=== PATIENT | male | born 1970 | race Caucasian/White ===

== ENCOUNTER 2018-04-19 09:45 | Emergency (ER) | payer OTHER ==
[~2018-04-19] VITALS: Wt 77.1 kg
[~2018-04-19 09:45] MED LIST: ACETAMINOHPEN/C1 TAB PO; AMBIEN5 MG PO; AUGMENTIN 875 M1 TAB PO; CELEXA40 MG PO; CLARITIN10 MG PO; FLEXERIL10 MG PO; GLIPIZIDE5 MG PO; LANTUS100 U/ML SC; METFORMIN1000 MG PO; TRAZADONE HYDR100 MG PO; VOLTAREN75 MG PO; ZOFRAN4 MG PO
[2018-09-10] MEDS ORDERED: CEPHALEXIN500 M1 PO (13:44)
== END 2018-04-19 13:09 | disposition home or self-care (01) ==
LOC: ED 09:45
DX: E11.40 Type 2 diabetes mellitus with diabetic neuropathy, unspecified (principal); M79.671 Pain in right foot; M79.672 Pain in left foot; F17.200 Nicotine dependence, unspecified, uncomplicated; Z79.899 Other long term (current) drug therapy; Z88.6 Allergy status to analgesic agent; Z79.4 Long term (current) use of insulin

== ENCOUNTER 2018-09-12 20:29 | Emergency (ER) | payer SELFPAY ==
[~2018-09-12] VITALS: Ht 180.3 cm; Wt 77.1 kg
--- NOTE | ~2018-09-12 | EKG ---
[place], [place] ELECTROCARDIOGRAM REPORT NAME: NICK ROACH UNIT #: [id number] ROOM: DOCTOR: EPIPHANY DRAFT REPORT BIRTHDATE: [birth year] [facility] Test Date: 2018-09-12 Test Time: 20:48:38 Pat Name: NICK ROACH Department: Room: Gender: Sole Stainer: : 1970 Requested By: MITZY LOPEZ Order Number: [id number] Reading MD: Micki Siddiqui MD Measurements Intervals [place] Rate: 75 P: 58 NC: 168 QRS: 20 QRSD: 92 T: 83 QT: 395 QTc: 442 Interpretive Statements Sinus rhythm Consider left ventricular hypertrophy Electronically Signed On 09-13-2018 14:49:07 PDT by Micki Siddiqui MD CM:EKGRPT:ELECTROCARDIOGRAM REPORT [id number] MITZY LOPEZ MD EPIPHANY DRAFT REPORT MITZY LOPEZ MD
[~2018-09-12 20:29] MED LIST changes: +CEPHALEXIN500 M1 PO
[2018-09-12 20:45] LABS: BASO # 0.1 10*3/uL (0.0-0.1); BASO % 0.7 % (0.0-1.0); EOS # 0.1 10*3/uL (0.0-0.4); EOS % 1.2 % (1.0-4.0); HEMATOCRIT 36.9 % (42.0-52.0); HEMOGLOBIN 12.6 g/dl (14.0-18.0); MEAN CELL VOLUME 89.1 fl (80.0-94.0); MEAN CORPUSCULAR HGB 30.4 pg (27.0-31.0); MEAN CORPUSCULAR HGB CONC 34.1 g/dl (33.0-37.0); MEAN PLATELET VOLUME 10.4 fl (9.6-12.3); MONO # 0.6 10*3/uL (0.1-1.0); NEUT # 4.5 10*3/uL (2.3-7.9); PLATELET COUNT AUTOMATED 220 10*3/uL (130-400); RED BLOOD COUNT 4.14 10*6/uL (4.50-5.90); RED CELL DISTRI WIDTH 12.3 % (0-14.5); WHITE BLOOD COUNT 7.2 10*3/uL (4.8-10.8)
[2018-09-12 21:01] LABS: ALKALINE PHOSPHATASE 45 U/L (45-117); BUN 15 mg/dl (7-24); CHLORIDE 102 mmol/L (98-107); CREATININE 1.13 mg/dL (0.70-1.30); POTASSIUM 3.8 mmol/L (3.5-5.1); SGOT/AST 14 IU/L (3-35); SGPT/ALT 14 U/L (12-78); SODIUM 137 mmol/L (136-145); TOTAL PROTEIN 7.1 gm/dL (6.4-8.2)
[2018-09-12 21:09] LABS: ACETAMINOPHEN (TYLENOL) < 5.0 ug/ml (10-30); THYROID STIM HORMONE (HS) 0.749 uIU/ml (0.358-4.75)
[2018-09-12 21:10] LABS: BILIRUBIN 1+ (NEGATIVE); BLOOD NEGATIVE (NEGATIVE); CLARITY CLEAR (CLEAR); COLOR YELLOW (YELLOW); GLUCOSE 3+ (NEGATIVE); KETONE TRACE (NEGATIVE); LEUKO ESTERASE NEGATIVE (NEGATIVE); NITRITE NEGATIVE (NEGATIVE); PH 5.5 (5.0-9.0); SPECIFIC GRAVITY >= 1.030 (1.005-1.030); UROBILINOGEN 0.2 E.U./dl (0.2-1.0)
[2018-09-12 21:10] LABS: ETHYL ALCOHOL < 3.0 mg/dl (<3)
[2018-09-12 21:18] LABS: URINE AMPHETAMINES < 1000 (1000ng/ml); URINE BARBITURATES < 200 (200ng/ml); URINE BENZODIAZEPINES < 200 (200ng/ml); URINE CANNABINOIDS (THC) > 50 (50ng/ml); URINE COCAINE < 300 (300ng/ml); URINE METHADONE < 300 (300ng/ml); URINE OPIATES < 300 (300ng/ml)
[2018-09-12 21:25] LABS: URINE PHENCYCLIDINE < 25 (25ng/ml)
[2018-09-12 21:29] LABS: BACTERIA TRACE; MUCOUS 2+; WBC 0-2 wbc/hpf (0-5)
== END 2018-09-13 17:00 | disposition home health service (06) ==
LOC: ED 20:29
PROVIDERS: Emergency Medicine Emergency Medical Services
DX: F32.9 Major depressive disorder, single episode, unspecified (principal); G62.9 Polyneuropathy, unspecified; Z88.6 Allergy status to analgesic agent

== ENCOUNTER 2018-10-02 21:43 | Emergency (ER) | payer SELFPAY ==
[~2018-10-02] VITALS: Ht 180.3 cm; Wt 79.4 kg
--- NOTE | ~2018-10-02 | EKG ---
[place], [place] ELECTROCARDIOGRAM REPORT NAME: NICK ROACH UNIT #: [id number] ROOM: DOCTOR: EPIPHNOLA DRAFT REPORT BIRTHDATE: [birth year] [facility] Test Date: 2018-10-03 Test Time: 11:51:19 Pat Name: NICK ROACH Department: Room: Gender: Mumps Developer: : 1970 Requested By: YESY FLETCHER Order Number: [id number] Reading MD: Wilfredo Aviles MD Measurements Intervals [place] Rate: 72 P: 59 IA: 175 QRS: 40 QRSD: 94 T: 82 QT: 404 QTc: 443 Interpretive Statements Sinus rhythm Consider left ventricular hypertrophy Nonspecific T abnormalities, lateral leads Electronically Signed On 10-04-2018 8:03:57 PDT by Wilfredo Aviles MD CM:EKGRPT:ELECTROCARDIOGRAM REPORT [id number] YESY BENEDICT DRAFT REPORT YESY FLETCHER M.D.
[2018-10-02] MEDS ORDERED: RISPERDAL0.5 MG PO (21:58)
[2018-10-02] MEDS ORDERED: LEXAPRO20 MG PO (21:58)
[2018-10-02] MEDS ORDERED: ZOCOR20 MG PO (21:59)
[2018-10-02] MEDS ORDERED: VITAMIN D31000 UNI1 PO (21:59)
[2018-10-02] MEDS ORDERED: AMITRIPTYLINE25 MG PO (22:00)
[2018-10-02] MEDS ORDERED: ASPIRIN CHILDRE81 MG PO (22:00)
[2018-10-02] MEDS ORDERED: GLUCOPHAGE500 M1 PO (22:01)
[2018-10-02 22:24] LABS: BASO # 0.1 10*3/uL (0.0-0.1); BASO % 0.5 % (0.0-1.0); EOS # 0.2 10*3/uL (0.0-0.4); EOS % 1.5 % (1.0-4.0); HEMATOCRIT 38.3 % (42.0-52.0); HEMOGLOBIN 12.6 g/dl (14.0-18.0); LYMPH # 1.9 10*3/uL (1.3-4.4); LYMPH % 18.1 % (27.0-41.0); MEAN CELL VOLUME 90.3 fl (80.0-94.0); MEAN CORPUSCULAR HGB 29.7 pg (27.0-31.0); MEAN CORPUSCULAR HGB CONC 32.9 g/dl (33.0-37.0); MEAN PLATELET VOLUME 9.9 fl (9.6-12.3); MONO # 0.7 10*3/uL (0.1-1.0); MONO % 6.4 % (3.0-9.0); NEUT # 7.6 10*3/uL (2.3-7.9); NEUT % 73.2 % (47.0-73.0); PLATELET COUNT AUTOMATED 252 10*3/uL (130-400); RED BLOOD COUNT 4.24 10*6/uL (4.50-5.90); RED CELL DISTRI WIDTH 12.2 % (0-14.5); WHITE BLOOD COUNT 10.3 10*3/uL (4.8-10.8)
[2018-10-02 22:40] LABS: BILIRUBIN 1+ (NEGATIVE); BLOOD NEGATIVE (NEGATIVE); CLARITY SL CLOUDY (CLEAR); COLOR YELLOW (YELLOW); GLUCOSE 3+ (NEGATIVE); KETONE TRACE (NEGATIVE); LEUKO ESTERASE NEGATIVE (NEGATIVE); NITRITE NEGATIVE (NEGATIVE); PH 5.5 (5.0-9.0); SPECIFIC GRAVITY >= 1.030 (1.005-1.030)
[2018-10-02 22:40] LABS: ACETAMINOPHEN (TYLENOL) < 5.0 ug/ml (10-30); ALBUMIN 4.4 gm/dl (3.1-4.5); ALKALINE PHOSPHATASE 42 U/L (45-117); BUN 20 mg/dl (7-24); CHLORIDE 106 mmol/L (98-107); CREATININE 1.19 mg/dL (0.70-1.30); ETHYL ALCOHOL < 3.0 mg/dl (<3); POTASSIUM 4.7 mmol/L (3.5-5.1); SGOT/AST 24 IU/L (3-35); SGPT/ALT 17 U/L (12-78); SODIUM 139 mmol/L (136-145); TOTAL PROTEIN 7.5 gm/dL (6.4-8.2)
[2018-10-02 22:48] LABS: URINE AMPHETAMINES < 1000 (1000ng/ml); URINE BARBITURATES < 200 (200ng/ml); URINE BENZODIAZEPINES < 200 (200ng/ml); URINE CANNABINOIDS (THC) > 50 (50ng/ml); URINE COCAINE < 300 (300ng/ml); URINE METHADONE < 300 (300ng/ml); URINE OPIATES < 300 (300ng/ml); URINE PHENCYCLIDINE < 25 (25ng/ml)
[2018-10-02 22:50] LABS: HYALINE CAST 20-25; MUCOUS TRACE
== END 2018-10-03 18:46 | disposition home health service (06) ==
LOC: ED 21:43
PROVIDERS: Student in an Organized Health Care Education/Training Program
DX: F32.9 Major depressive disorder, single episode, unspecified (principal); G62.9 Polyneuropathy, unspecified; Z88.6 Allergy status to analgesic agent; Z79.899 Other long term (current) drug therapy; Z79.82 Long term (current) use of aspirin

== ENCOUNTER 2018-11-01 23:44 | Emergency (ER) | payer OTHER ==
[~2018-11-01] VITALS: Ht 172.7 cm; Wt 81.6 kg
[~2018-11-01 23:44] MED LIST changes: +AMITRIPTYLINE25 MG PO; +ASPIRIN CHILDRE81 MG PO; +GLUCOPHAGE500 M1 PO; +LEXAPRO20 MG PO; +RISPERDAL0.5 MG PO; +VITAMIN D31000 UNI1 PO; +ZOCOR20 MG PO
[2018-11-02 00:26] LABS: BASO % 0.5 % (0.0-1.0); EOS # 0.1 10*3/uL (0.0-0.4); EOS % 2.4 % (1.0-4.0); HEMATOCRIT 30.8 % (42.0-52.0); HEMOGLOBIN 10.4 g/dl (14.0-18.0); LYMPH # 1.4 10*3/uL (1.3-4.4); LYMPH % 23.8 % (27.0-41.0); MEAN CELL VOLUME 89.8 fl (80.0-94.0); MEAN CORPUSCULAR HGB 30.3 pg (27.0-31.0); MEAN CORPUSCULAR HGB CONC 33.8 g/dl (33.0-37.0); MONO # 0.5 10*3/uL (0.1-1.0); MONO % 7.7 % (3.0-9.0); NEUT # 3.8 10*3/uL (2.3-7.9); NEUT % 65.3 % (47.0-73.0); PLATELET COUNT AUTOMATED 222 10*3/uL (130-400); RED BLOOD COUNT 3.43 10*6/uL (4.50-5.90); RED CELL DISTRI WIDTH 13.3 % (0-14.5); WHITE BLOOD COUNT 5.8 10*3/uL (4.8-10.8)
[2018-11-02 00:43] LABS: ALBUMIN 3.6 gm/dl (3.1-4.5); ALKALINE PHOSPHATASE 39 U/L (45-117); BUN 19 mg/dl (7-24); CHLORIDE 105 mmol/L (98-107); CREATININE 0.75 mg/dL (0.70-1.30); POTASSIUM 3.8 mmol/L (3.5-5.1); SGOT/AST 14 IU/L (3-35); SGPT/ALT 23 U/L (12-78); SODIUM 138 mmol/L (136-145); TOTAL PROTEIN 6.5 gm/dL (6.4-8.2)
== END 2018-11-02 02:10 | disposition short-term general hospital (02) ==
LOC: ED 23:44
PROVIDERS: Physician Assistant
DX: S12.501A Unspecified nondisplaced fracture of sixth cervical vertebra, initial encounter for closed fracture (principal); R11.10 Vomiting, unspecified; E11.9 Type 2 diabetes mellitus without complications; Z79.84 Long term (current) use of oral hypoglycemic drugs; Z88.6 Allergy status to analgesic agent; Z79.899 Other long term (current) drug therapy; Z79.82 Long term (current) use of aspirin; X58.XXXA Exposure to other specified factors, initial encounter; Y93.89 Activity, other specified; Y92.89 Other specified places as the place of occurrence of the external cause; Y99.8 Other external cause status

== ENCOUNTER 2019-02-08 18:09 | Emergency (ER) | payer SELFPAY ==
[~2019-02-08] VITALS: Ht 177.8 cm; Wt 81.6 kg
[2019-02-08 19:14] LABS: BASO % 0.6 % (0.0-1.0); EOS # 0.1 10*3/uL (0.0-0.4); EOS % 1.9 % (1.0-4.0); HEMATOCRIT 32.6 % (42.0-52.0); HEMOGLOBIN 10.8 g/dl (14.0-18.0); LYMPH # 1.4 10*3/uL (1.3-4.4); LYMPH % 21.2 % (27.0-41.0); MEAN CELL VOLUME 91.1 fl (80.0-94.0); MEAN CORPUSCULAR HGB 30.2 pg (27.0-31.0); MEAN CORPUSCULAR HGB CONC 33.1 g/dl (33.0-37.0); MONO # 0.5 10*3/uL (0.1-1.0); NEUT # 4.4 10*3/uL (2.3-7.9); NEUT % 69.1 % (47.0-73.0); PLATELET COUNT AUTOMATED 361 10*3/uL (130-400); RED BLOOD COUNT 3.58 10*6/uL (4.50-5.90); RED CELL DISTRI WIDTH 11.8 % (0-14.5); WHITE BLOOD COUNT 6.4 10*3/uL (4.8-10.8)
[2019-02-08 19:29] LABS: ALBUMIN 3.3 gm/dl (3.1-4.5); ALKALINE PHOSPHATASE 70 U/L (45-117); BUN 12 mg/dl (7-24); CHLORIDE 101 mmol/L (98-107); CREATININE 0.92 mg/dL (0.70-1.30); POTASSIUM 4.2 mmol/L (3.5-5.1); SGOT/AST 6 IU/L (3-35); SGPT/ALT 15 U/L (12-78); SODIUM 133 mmol/L (136-145); TOTAL PROTEIN 6.9 gm/dL (6.4-8.2)
[2019-02-08] MEDS ORDERED: CEPHALEXIN500 M1 PO (21:44)
== END 2019-02-08 21:53 | disposition home or self-care (01) ==
LOC: ED 18:09
PROVIDERS: Nurse Practitioner Family
DX: I82.812 Embolism and thrombosis of superficial veins of left lower extremity (principal); M25.551 Pain in right hip; E11.9 Type 2 diabetes mellitus without complications; Z88.8 Allergy status to other drugs, medicaments and biological substances; Z79.899 Other long term (current) drug therapy; Z79.82 Long term (current) use of aspirin; Z86.718 Personal history of other venous thrombosis and embolism

== ENCOUNTER 2019-09-21 16:25 | Observation (INO) | payer SELFPAY ==
[~2019-09-21] VITALS: Ht 177.8 cm; Wt 72.6 kg
--- NOTE | 2019-09-21 16:40 | NUR ---
REMOVED ALL OF PT. BELONGINGS AND PUT IN MED ROOM. ALSO REMOVED ALL CORDS FROM ROOM.
[2019-09-21 16:43] VITALS: BP 122/70
--- NOTE | 2019-09-21 17:14 | NUR ---
OFFERED PT. FOOD AND PILLOW. PT. DENIED BOTH. WILL CONT TO MONITOR. CALL LIGHT IN REACH.
--- NOTE | 2019-09-21 17:59 | NUR ---
HOOKED PT. UP TO STOKER INSTALLER.
--- NOTE | 2019-09-21 18:02 | NUR ---
1:1 SITTER WITH PT.
[2019-09-21 18:18] LABS: BASO % 0.6 % (0.0-1.0); EOS # 0.1 10*3/uL (0.0-0.4); EOS % 1.6 % (1.0-4.0); HEMATOCRIT 32.9 % (42.0-52.0); LYMPH # 1.8 10*3/uL (1.3-4.4); LYMPH % 36.5 % (27.0-41.0); MEAN CELL VOLUME 87.7 fl (80.0-94.0); MEAN CORPUSCULAR HGB 29.9 pg (27.0-31.0); MONO # 0.4 10*3/uL (0.1-1.0); MONO % 7.1 % (3.0-9.0); NEUT # 2.7 10*3/uL (2.3-7.9); PLATELET COUNT AUTOMATED 269 10*3/uL (130-400); RED BLOOD COUNT 3.75 10*6/uL (4.50-5.90); RED CELL DISTRI WIDTH 13.5 % (0-14.5)
[2019-09-21 18:32] LABS: ACT PARTIAL THROMBO TIME 24.8 SECONDS (20.0-32.1); INTERNATIONAL NORM RATIO 1.1 (2.0-3.5)
[2019-09-21 18:32] LABS: URINE AMPHETAMINES < 1000 (1000ng/ml); URINE BARBITURATES < 200 (200ng/ml); URINE BENZODIAZEPINES < 200 (200ng/ml); URINE CANNABINOIDS (THC) > 50 (50ng/ml); URINE COCAINE < 300 (300ng/ml); URINE METHADONE < 300 (300ng/ml); URINE OPIATES < 300 (300ng/ml)
[2019-09-21 18:34] LABS: URINE PHENCYCLIDINE < 25 (25ng/ml)
[2019-09-21 18:35] LABS: BILIRUBIN 1+ (NEGATIVE); BLOOD NEGATIVE (NEGATIVE); CLARITY SL CLOUDY (CLEAR); COLOR YELLOW (YELLOW); GLUCOSE NEGATIVE (NEGATIVE); KETONE NEGATIVE (NEGATIVE)
[2019-09-21 18:36] LABS: LEUKO ESTERASE NEGATIVE (NEGATIVE); NITRITE NEGATIVE (NEGATIVE); UROBILINOGEN 0.2 E.U./dl (0.2-1.0)
[2019-09-21 18:45] LABS: BACTERIA TRACE; MUCOUS 3+
[2019-09-21 18:50] LABS: ALBUMIN 3.7 gm/dl (3.1-4.5); BUN 26 mg/dl (7-24); CHLORIDE 106 mmol/L (98-107); LIPASE 92 U/L (73-393); POTASSIUM 3.9 mmol/L (3.5-5.1); SGOT/AST 9 IU/L (3-35); SGPT/ALT 13 U/L (12-78); SODIUM 138 mmol/L (136-145); TOTAL PROTEIN 6.8 gm/dL (6.4-8.2)
[2019-09-21 18:51] LABS: ALKALINE PHOSPHATASE 29 U/L (45-117)
[2019-09-21 18:52] LABS: ACETAMINOPHEN (TYLENOL) < 5.0 ug/ml (10-30); ETHYL ALCOHOL < 3.0 mg/dl (<3); TROPONIN I < 0.015 ng/ml (<0.045)
--- NOTE | 2019-09-21 20:03 | NUR ---
1:1 SITTER AT BEDSIDE.
[2019-09-21 21:00] VITALS: BP 114/79
[2019-09-21 21:45] VITALS: BP 141/83
--- NOTE | 2019-09-21 21:45 | NUR ---
A 49, admitted to , under the services of LAWRENCE Escalona DO with a diagnosis of SUICIDAL IDEATIONS, CHEST PAIN . Chief complaint is SUICIDAL IDEATION . Patient arrived via bed from ER. Monitor applied. Initial assessment completed. Vital signs taken and recorded. LAWRENCE ESCALONA DO notified of admission to the unit. Orders received. See assessment for past medical history, medications and allergies. Patient and/or family oriented to unit. [facility] visitation policy reviewed. Clothing/patient valuable form completed. KHUSHBOO SALCEDO
--- NOTE | 2019-09-21 22:00 | NUR ---
[facility] NOTIFIED OF CONSULT
--- NOTE | 2019-09-21 22:20 | NUR ---
PT UNABLE TO IDENTIFY HOME MEDICATIONS, STATES THAT HE HASNT TAKEN ANYTHING IN OVER 1 YEAR
[2019-09-22] VITALS: BP 128/78
--- NOTE | 2019-09-22 | NUR ---
PT SLEEPING AT THIS TIME
--- NOTE | 2019-09-22 01:00 | NUR ---
PT ASLEEP AT THIT TIME. PA AT BEDSIDE. CALL LIGHT IN REACH
--- NOTE | 2019-09-22 03:00 | NUR ---
PT SLEEPING AT THIS TIME. RESPIRATIONS EASY AND UNLABORED. CALL LIGHT IN REACH/ PA AT BEDSIDE
--- NOTE | 2019-09-22 05:34 | NUR ---
PT SLEEPING AT THIS TIME.
[2019-09-22 06:29] LABS: BASO % 0.8 % (0.0-1.0); EOS # 0.2 10*3/uL (0.0-0.4); EOS % 3.4 % (1.0-4.0); HEMATOCRIT 34.6 % (42.0-52.0); LYMPH % 38.9 % (27.0-41.0); MEAN CELL VOLUME 89.2 fl (80.0-94.0); MEAN CORPUSCULAR HGB 29.4 pg (27.0-31.0); MEAN CORPUSCULAR HGB CONC 32.9 g/dl (33.0-37.0); MEAN PLATELET VOLUME 10.2 fl (9.6-12.3); MONO # 0.4 10*3/uL (0.1-1.0); MONO % 7.5 % (3.0-9.0); NEUT # 2.5 10*3/uL (2.3-7.9); NEUT % 49.2 % (47.0-73.0); PLATELET COUNT AUTOMATED 262 10*3/uL (130-400); RED BLOOD COUNT 3.88 10*6/uL (4.50-5.90); RED CELL DISTRI WIDTH 13.3 % (0-14.5)
[2019-09-22 06:50] LABS: ALBUMIN 3.7 gm/dl (3.1-4.5); BUN 22 mg/dl (7-24); CHLORIDE 108 mmol/L (98-107); CHOLESTEROL 195 mg/dL (<200); HDL CHOLESTEROL 50 mg/dl (40-60); LDL CHOLESTEROL 127 mg/dL (9-159); POTASSIUM 3.7 mmol/L (3.5-5.1); SODIUM 138 mmol/L (136-145); TRIGLYCERIDES 90 mg/dl (<150); VLDL CHOLESTEROL 18 mg/dL (6-40)
[2019-09-22 07:00] LABS: ALKALINE PHOSPHATASE 31 U/L (45-117); CREATININE 0.72 mg/dL (0.70-1.30); FREE T4 1.25 ng/dl (0.76-1.46); IRON 84 ug/dL (65-175); SGOT/AST 10 IU/L (3-35); SGPT/ALT 14 U/L (12-78); TOTAL IRON BINDING CAPACITY 254 ug/dl (250-450); TOTAL PROTEIN 6.5 gm/dL (6.4-8.2)
[2019-09-22 07:31] LABS: VITAMIN D, 25-HYDROXY 32.1 ng/mL (30-100)
[2019-09-22 07:32] LABS: FERRITIN 203.2 ng/mL (22.0-322.0)
[2019-09-22 08:00] VITALS: BP 132/66
--- NOTE | 2019-09-22 08:03 | NUR ---
INITIAL ASSESSMENT COMPLETED. PT RESTING IN BED WITH EYES CLOSED. NO DISTRESS NOTED AT THIS TIME. PT IS EMACIATED FROM STARVING HISSELF. PATEINT'S STATED PREFERRED PLAN OF SUICIDE. RESPS EASY ON RA,SPO2 99%.ENCOURAGED PT TO ORDER SOMETHING SMALL FOR BREAKFAST. PT ORDERED COFFEE AND "A PIECE OF BREAD".DENIES CP/PRESSURE "FOR NOW". DENIES SOB.FLAT AFFECT NOTEDYET PT MAINTAINS PLEASANT CONVERSATION.
--- NOTE | 2019-09-22 08:28 | NUR ---
DR DOTY ROUNDED AND SPOKE WITH PT. PT C/O NAUSEA AT THIS TIME.
--- NOTE | 2019-09-22 08:37 | NUR ---
PT REFUSING ZOFRAN UNTIL AFTER HE "EATS HIS BREAD".
--- NOTE | 2019-09-22 08:56 | NUR ---
NURSE PRACTITIONER FROM [facility] ROUNDED AND ASSESSED PT. PT HAS AGREED TO "NOT HURT HIMSELF" AND STATED THAT "IF I HURT MYSELF I WOULD DO IT AWAY FROM PEOPLE BEHIND ... WHERE NOBODY WOULD STOP". NOTIFIED DR DOTY, ONCE MEDICALLY CLEARED, PT WOULD BE ACCEPTED TO [facility]. PT STATES THAT HE'S WILLING TO SIGN HIMSELF IN FOR BEHAVIORAL HEALTH [place].
--- NOTE | 2019-09-22 09:03 | NUR ---
PT CURRENTLY EATING 2 SLICES OF BREAD AND COFFEE. STILL REFUSING ZOFRAN.CLOSELY MONITORING. STABLE AT THIS TIME.
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
--- NOTE | 2019-09-22 09:48 | NUR ---
DR DOTY ASSESSED WOUND AT BEDSIDE. AWAITING ORDERS.
--- NOTE | 2019-09-22 10:14 | NUR ---
PT BGM 167, NO COVERAGE GIVEN D/T THE PT REFUSING TO EAT ANYTHING OTHE RTHAN BREAD.
--- NOTE | 2019-09-22 10:23 | NUR ---
[facility] MANAGER NUCLEAR JUAN IN TO SPEAK TO PT. PT NOT ELIGIBLE FOR [facility]. SELF PAYS AREN'T ACCEPTED AND MAIRA ALBA WILL BE IN AND SPEAK TO PT AND ASSIST PT WITH ALTERNATIVE TREATMENT PLANS.
--- NOTE | 2019-09-22 11:23 | NUR ---
Environmental Science Professor in to talk to patient in his room. Pt. is currently 1:1 with RN due to Suicidal Thoughts with Definative Plan by Hanging. Patient Lives at Home alone at [facility] [employer] [place] which are income based. Pt. currently is Self Pay Insurance. There are no steps in the home as Apartment is all on one floor. Physician: Pt. has previously been seen at the [facility] in [place] but states "I have not been there in about a year". Pt. has a [facility] [place] through the [facility] due to Mental Health Issues. Pharmacy: [facility] [place] Home health services: Pt. currently does not have Home Health Patient's level of ADLs: Independent Patient has working utilities: Confirmed with [employer] [facility] DME: None Follow-up physician's appointment after d/c: per Hospitalist office Does patient want to access PORTAL?: Declines Discharge plan: When Medically Stable and No Risk to self or Others Pt. would like to return home. Pt. states that at this time he cannot think of anything except Dying. Pt. is 1:1 Sitter due to Suicidal with Plan. Franca MILLER is aware of Pt. admission and will work with Pt. to get him to Behavioral Health Facility due to Self Pay Status Pt. is unable to go to the [facility]. JUAN KOROMA LPN
[2019-09-22 12:00] VITALS: BP 134/73
--- NOTE | 2019-09-22 12:34 | NUR ---
Message sent to Pamela From [facility] Ext [phone] due to Self Pay Status.
--- NOTE | 2019-09-22 13:17 | NUR ---
psychiatric assessment: met with client who is known to me from previous assessments. he presents a &ox4, he is pleasant, no psychosis evidenced, he denies any sensory disturbance, he voices no delusions. he reports to me that he came to the er because he was having breathing issues and chest pain, he reports having suicidal ideation at home, he believes due to situation and stress. he reports that he has no medical coverage because he works at [employer]. he is an active client at the the medical center where he resides in their housing and he has a case managers. he reports that he has never had a suicide attempt and in 2019 he presented for the same thoughts and i did send him to [facility] then since he was a self pay, he does not take any medications because he said he cant afford them even though the [facility] does give him a discount for his scripts, he said that he just feels unhappy at times and stressed out but that he would not have come to the er for suicidal thoughts because he has them off and on, he came for his medical issues. he denies thoughts of suicide here and he feels safe here, he does not want to harm himself at this time. he reports that he feels safe in his room here and he wants medical treatment, does not want to leave. i explained to him about what would have to happen if he continues to have concerns about his safety at home, i explained the process for the court and [facility]. we went over a safety plan for here and how to access the staff should he need anything or if he did not feel safe, he stated understanding and said that he would do that, he will use his call light. At the present time based on my clinical evaluation , this client does not need a one to one here in the hospital, he is not voicing suicidal thoughts with a plan to harm himself. his insight and judgement are intact. i will follow this client and assess him tuesday or when medically stable for dc, at that time we will determine if he has a need to go to [facility] and if so i will need to go to probate court and involve the counseling center. discussed with nursing who are going to talk to the doctor.
[2019-09-22 16:00] VITALS: BP 122/66
--- NOTE | 2019-09-22 16:03 | NUR ---
Spoke to Pt. Jitney Driver at the [facility]. Pt. will return home to [facility] when Medically Stable and Not at Risk. Jitney Driver will arrange for Pt. follow up appointments and Medications through the [facility] with Assistance of Case Management.
--- NOTE | 2019-09-22 16:30 | NUR ---
BSG 149. NO INSULIN NEEDED PER S/S. PT DENIES ANY CHEST PAIN/DISCOMFORT AT THIS TIME. DENIES ANY SUICIDAL THOUGHTS AT THIS TIME. WILL CONTINUE TO MONITOR. VSS. CALL LIGHT WITHIN REACH.
--- NOTE | 2019-09-22 16:35 | NUR ---
DINNER TRAY ORDERED FOR PATIENT.
[2019-09-22 20:00] VITALS: BP 108/54
--- NOTE | 2019-09-22 20:58 | NUR ---
RESTORIL GIVEN FOR COMPLAINTS OF INSOMNIA. WILL MONITOR
--- NOTE | 2019-09-22 21:50 | NUR ---
RESTORIL EFFECTIVE. PT SLEEPING AT THIS TIME.
[2019-09-23] VITALS: BP 114/69
--- NOTE | 2019-09-23 | NUR ---
PT SLEEPING. RESPIRATIONS EASY AND UNLABORED. CALL LIGHT IN REACH
--- NOTE | 2019-09-23 06:00 | NUR ---
PT SLEEPING AT THIS TIME.
[2019-09-23 06:30] LABS: BASO # 0.1 10*3/uL (0.0-0.1); BASO % 1.2 % (0.0-1.0); EOS # 0.2 10*3/uL (0.0-0.4); EOS % 3.5 % (1.0-4.0); HEMATOCRIT 35.5 % (42.0-52.0); LYMPH # 1.5 10*3/uL (1.3-4.4); MEAN CELL VOLUME 88.5 fl (80.0-94.0); MEAN CORPUSCULAR HGB 29.7 pg (27.0-31.0); MEAN CORPUSCULAR HGB CONC 33.5 g/dl (33.0-37.0); MONO # 0.3 10*3/uL (0.1-1.0); MONO % 7.3 % (3.0-9.0); NEUT # 2.3 10*3/uL (2.3-7.9); NEUT % 53.8 % (47.0-73.0); PLATELET COUNT AUTOMATED 262 10*3/uL (130-400); RED BLOOD COUNT 4.01 10*6/uL (4.50-5.90); RED CELL DISTRI WIDTH 13.2 % (0-14.5); WHITE BLOOD COUNT 4.3 10*3/uL (4.8-10.8)
[2019-09-23 07:01] LABS: ALBUMIN 3.8 gm/dl (3.1-4.5); BUN 17 mg/dl (7-24); CHLORIDE 109 mmol/L (98-107); CREATININE 0.77 mg/dL (0.70-1.30); POTASSIUM 3.8 mmol/L (3.5-5.1); SGOT/AST 8 IU/L (3-35); SGPT/ALT 14 U/L (12-78); SODIUM 138 mmol/L (136-145); TOTAL PROTEIN 6.8 gm/dL (6.4-8.2)
[2019-09-23 07:02] LABS: ALKALINE PHOSPHATASE 33 U/L (45-117)
[2019-09-23 08:00] VITALS: BP 112/52
[2019-09-23 12:00] VITALS: BP 124/74
--- NOTE | 2019-09-23 12:11 | NUR ---
PT MEDICATED WITH IV ZOFRAN PER PRN ORDER FOR C/O NAUSEA. WILL MONITOR EFFECTIVENESS. LUNCH TRAY ORDERED.
--- NOTE | 2019-09-23 13:11 | NUR ---
EARLIER ZOFRAN EFFECTIVE. PATIENT ABLE TO EAT LUNCH WITHOUT NAUSEA/VOMITING. WILL CONTINUE TO MONITOR.
--- NOTE | 2019-09-23 14:30 | NUR ---
OKAY FOR PATIENT TO REMOVE LINE PULLER TO SHOWER PER .
[2019-09-23 16:00] VITALS: BP 108/68
--- NOTE | 2019-09-23 16:00 | NUR ---
DRESSING APPLIED TO WOUND TO RIGHT MEDIAL ANKLE PER ORDER. PT TOLERATED WELL. WILL MONITOR.
--- NOTE | 2019-09-23 19:30 | NUR ---
REPORT RECEIVED. PT LYING IN BED AT THIS TIME. NO S/S OF DISTRESS NOTED. CALL LIGHT IN REACH
[2019-09-23 20:00] VITALS: BP 125/77
--- NOTE | 2019-09-23 21:01 | NUR ---
RESTORIL GIVEN FOR COMPLAINTS OF INSOMNIA. WILL MONITOR
--- NOTE | 2019-09-23 22:00 | NUR ---
RESTORIL EFFECTIVE, PT ASLEEP
[2019-09-24] VITALS: BP 122/78
--- NOTE | 2019-09-24 01:00 | NUR ---
PT SLEEPING AT THIS TIME.
--- NOTE | 2019-09-24 03:42 | NUR ---
PT MEDICATED WITH ZOFRAN FOR COMPLAINTS OF VOMITING/NAUSEA. WILL MONITOR
--- NOTE | 2019-09-24 03:45 | NUR ---
AFTER ADMINISTRATION OF ZOFRAN, NURSE ATTEMPTED TO PUT HEART MONITOR BACK ON PT THAT HE TOOK OFF. PT STATED THAT HE WOULD NOT PUT HEART MONITOR BACK ON. ALSO STATED THAT HE WAS NOT TO BE WOKEN UP BY LAB IN THE MORNING OR BY ANYONE TO CHECK SUGAR. PT WANTED TO BE LEFT ALONE. PT EDUCATED ON IMPORTANCE OF HEART MONITOR WELL BSG CHECK. PT STILL REFUSED.
--- NOTE | 2019-09-24 04:40 | NUR ---
ZOFRAN APPEARS EFFECTIVE, PT ASLEEP
[2019-09-24 08:00] VITALS: BP 131/80
[2019-09-24 12:00] VITALS: BP 112/63
--- NOTE | 2019-09-24 12:31 | NUR ---
Discussed discharge planning with Franca Valenzuela. She states the patient can be discharged to home with follow up at the counseling center. She states he wasn't suicidal on Tuesday. [place] has a waiting list. Anh Wang notified.
[2019-09-24] MEDS ORDERED: FAMOTIDINE20 M1 PO (13:02)
[2019-09-24] MEDS ORDERED: ZOFRAN4 MG PO (13:02)
--- NOTE | 2019-09-24 14:38 | NUR ---
Discharge instructions reviewed with patient/family. Patient receptive and verbalizes understanding. Follow-up care arranged. Written instructions given to patient/family. RICKEY PARHAM
== END 2019-09-24 14:45 | disposition home or self-care (01) ==
LOC: ED 16:25 → EDHOLD 19:47 → 4E 21:08
PROVIDERS: Internal Medicine; Nurse Practitioner Family; Student in an Organized Health Care Education/Training Program; ADMIT Emergency Medicine
DX: R07.89 Other chest pain (principal); R45.851 Suicidal ideations; F32.9 Major depressive disorder, single episode, unspecified; R42 Dizziness and giddiness; E11.65 Type 2 diabetes mellitus with hyperglycemia; D64.9 Anemia, unspecified; E11.42 Type 2 diabetes mellitus with diabetic polyneuropathy